=== PATIENT | male | born 1950 | race Caucasian/White ===

== ENCOUNTER → 2019-10-27 | Outpatient (CLI) | payer MEDICARE ==
--- NOTE | 2019-10-27 12:42 | US ---
EXAMINATION TYPE: US venous doppler duplex LE DATE OF EXAM: 10/27/2019 12:29 PM COMPARISON: NONE CLINICAL HISTORY: R60.0 Edema. SIDE PERFORMED: TECHNIQUE: The lower extremity deep venous system is examined utilizing real time linear array sonog bryson with graded compression, doppler sonography and color-flow sonography. VESSELS IMAGED: External Iliac Vein (EIV) Common Femoral Vein Deep Femoral Vein Greater Saphenous Vein * Femoral Vein Popliteal Vein Small Saphenous Vein * Proximal Calf Veins (* superficial vessels) Patient of large body habitus, technically difficult study. Right Leg: appears negative for DVT Left Leg: appears negative for DVT Grayscale, color doppler, spectral doppler imaging performed of the deep veins of the bilateral lower extremities. There is normal flow, compressibility, vascular waveforms. IMPRESSION: No ultrasound evidence for acute DVT in either lower extremity.
== END | disposition home or self-care (01) ==
LOC: RADUSWWP 11:36
PROVIDERS: ATTEND Nurse Practitioner Family
DX: R60.0 Localized edema (principal)
CPT/HCPCS: 93970

== ENCOUNTER → 2020-06-07 | Outpatient (CLI) | payer MEDICARE ==
--- NOTE | 2020-06-08 16:46 | ECHOF ---
Referral Reason:I50.9 Heart failure MEASUREMENTS -------- HEIGHT: 190.5 cm WEIGHT: 140.6 kg BP: IVSd: 1.8 cm (0.6 - 1.1) LVIDd: 5.1 cm (3.9 - 5.3) LVPWd: 2.2 cm (0.6 - 1.1) IVSs: 2.4 cm LVIDs: 3.9 cm LVPWs: 2.4 cm LAESV Index (A-L): 19.08 ml/m Ao Diam: 4.3 cm (2.0 - 3.7) AV Cusp: 2.0 cm (1.5 - 2.6) MV E Nikita: 0.67 m/s MV DecT: 380 ms MV A Nikita: 0.87 m/s MV E/A Ratio: 0.77 AR PHT: 479 ms FINDINGS -------- This was a technically difficult study with suboptimal views. The left ventricular size is normal. There is severe concentric left ventricular hypertrophy. Ove rall left ventricular systolic function is mild-moderately impaired with, an EF between 40 - 45 %. Septal wall motion is delayed, and consistent with conduction delay/bundle branch block. The RV was not well visualized. Normal LA size by volume 22+/-6 ml/m2. The right atrium was not well visualized. 5.0mg of Lumason was utilized for enhancement of images Interatrial and interventricular septum intact. The aortic valve was not well visualized. Trace amount of aortic regurgitation. There is no evid ence of aortic stenosis. The mitral valve was not well visualized. No mitral regurgitation. The tricuspid valve was not well visualized. Unable to estimate RVSP due to inadequate TR jet spect ral doppler profile. The pulmonic valve was not well visualized. The aortic root is dilated measuring 4.3cm. IVC Not well visulized. There is no pericardial effusion. CONCLUSIONS -------- 1. The left ventricular size is normal. 2. There is severe concentric left ventricular hypertrophy. 3. Overall left ventricular systolic function is mild-moderately impaired with, an EF between 40 - 45 %. 4. Septal wall motion is delayed, and consistent with conduction delay/bundle branch block. 5. Trace amount of aortic regurgitation. 6. The aortic root is dilated measuring 4.3cm. CHAIR MECHANIC: Lucy Garcia RDCS
== END | disposition home or self-care (01) ==
LOC: RADECHMAIN 11:49
PROVIDERS: ATTEND Family Medicine
DX: I50.9 Heart failure, unspecified (principal); I35.1 Nonrheumatic aortic (valve) insufficiency; I51.7 Cardiomegaly
CPT/HCPCS: C8929; Q9950; 93306

== ENCOUNTER → 2022-05-15 | Outpatient (CLI) | payer BC ==
--- NOTE | 2022-05-15 14:21 | CT ---
EXAMINATION TYPE: CT angio chest DATE OF EXAM: 05/15/2022 COMPARISON: None HISTORY: thoracic aneurysm CT DLP: 1802.9 mGycm CONTRAST: CTA thoracic aorta with 3-D reconstruction is performed and with IV Contrast, patient injected with 1 70 mL of Isovue 370. Contrast CTA of the thoracic aorta was performed from the lung apex through the upper abdomen. 3D re construction imaging obtained at a separate workstation. CT Chest: THORACIC AORTA: The aortic root measures 4 cm AP dimension. Ascending thoracic aorta measures 4.1 cm AP dimension. The aortic arch and ascending thoracic aorta are of normal caliber. Mild atheromatous c hanges seen. There is no evidence for dissection or periaortic collection. LUNGS: The lungs are clear and free of infiltrate or atelectasis. Parenchymal scarring in the region of the lingula. No pulmonary nodule or mass is detected. No pleural effusion or CT evidence of inte rstitial lung disease. MEDIASTINUM: No evidence for mediastinal hematoma. The heart is not enlarged. No evidence for med iastinal mass or adenopathy. HILAR STRUCTURES: No evidence for mass. No hilar adenopathy is appreciated. OTHER: No significant abnormality. IMPRESSION- Mild ascending thoracic aortic aneurysm.
== END | disposition home or self-care (01) ==
LOC: RADCTMAIN 12:38
PROVIDERS: ATTEND Internal Medicine Cardiovascular Disease
DX: I71.21 Aneurysm of the ascending aorta, without rupture (principal)
CPT/HCPCS: 82565; 84520; 71275; 36415; Q9967

== ENCOUNTER 2022-12-25 07:41 | Day surgery (SDC) | payer MEDICARE ==
[~2022-12-25 07:41] MED LIST: ALPRAZolam 0.25 MG TAB PO PRN; ALPRAZolam 0.5 MG TAB PO PRN; ASPIRIN 325 MG TAB PO STA; ATORVASTATIN 80 MG TAB PO STA; HEPARIN SODIUM,PORCINE (1 ML) 2,500 UNIT in SODIUM CHLORIDE 0.9% 250 ML IRRIGATION PRN; HEPARIN SODIUM,PORCINE 10,000 UNIT in SODIUM CHLORIDE 0.9% 1,000 ML IRRIGATION PRN; NITROGLYCERIN SL TABS 0.4 MG TAB SUBLINGUAL PRN
[2022-12-25] MEDS ORDERED: SODIUM CHLORIDE 0.9% 1,000 ML IV ONE (07:56)
[2022-12-25] MEDS ORDERED: METOPROLOL SUCCINATE (ER) 25 MG TAB.ER.24H PO STA (08:02)
[2022-12-25] MEDS ORDERED: fentaNYL (PF) 50 MCG/ML 2 ML AMP ONE (09:10)
[2022-12-25] MEDS ORDERED: fentaNYL (PF) 50 MCG/ML 2 ML AMP IVP ONE ×2 (09:20→09:41)
[2022-12-25] MEDS ORDERED: MIDAZOLAM 2 MG/2 ML VIAL IVP ONE (09:41)
[2022-12-25] MEDS ORDERED: LIDOCAINE 1% INJ 10MG/ML (20 ML MDV) SQ ONE (09:44)
[2022-12-25] MEDS ORDERED: VERAPAMIL SYRINGE (5 MG/10 ML) INTRAARTER ONE (09:45)
[2022-12-25] MEDS ORDERED: HEPARIN SODIUM 1,000 UN/ML (10ML VL) ONE (09:47)
[2022-12-25] MEDS ORDERED: HEPARIN SODIUM 1,000 UN/ML (10ML VL) IV ONE (09:48)
[2022-12-25] MEDS ORDERED: IOPAMIDOL-370 100ML BTL INJ ONE (10:05)
[2022-12-25] MEDS ORDERED: SODIUM CHLORIDE 0.9% 1,000 ML IV SCH (10:30)
[2022-12-25] MEDS ORDERED: RX INFO: IV CONTRAST WAS GIVEN 1 EACH MISC MISCELLANE PRN (10:34)
--- NOTE | 2022-12-25 10:52 | CC ---
CARDIAC CATHETERIZATION REPORT INDICATION: Unstable angina. HISTORY OF PRESENT ILLNESS: This is a 72-year-old gentleman with history of shortness of breath and who presented to me with progressively worsening shortness of breath with activity. He initially had a dobutamine stress echo that did not reveal any ischemia and was advised to undergo cardiac catheterization for definitive diagnosis, but he canceled his cardiac cath and came back to see me almost 6 months later stating that his shortness of breath is getting worse and he is concerned. I felt that his shortness of breath may be an anginal equivalent. Hence, I advised him to undergo cardiac catheterization for further evaluation. The patient had been explained of risks, benefits, and alternatives, understood and accepted. PROCEDURE NOTE: After obtaining informed consent, left heart catheterization and coronary angiogram were performed via the right radial artery using standard Laura catheters. The patient tolerated the procedure well without any obvious immediate complications. A TR band will be used for hemostasis. Received moderate conscious sedation. Total sedation time was 35 minutes. I obtained right radial artery access using Seldinger technique, 6-[place] sheath was placed. Catheters and wires were floated into the ascending aorta under fluoroscopic guidance. The patient received verapamil and heparin per protocol. FINDINGS: 1. HEMODYNAMICS: Left ventricular end-diastolic pressure is 18 mm. There is no significant gradient across the aortic valve. 2. LEFT VENTRICULOGRAM: Left ventriculogram is not performed. 3. ANGIOGRAPHIC DATA: a.Right coronary artery is a large dominant vessel that shows a focal 70% stenosis in the mid RCA. Left main coronary artery appears calcified, but is free of significant stenosis. Divides into left anterior descending coronary artery and circumflex coronary artery. Circumflex coronary artery gives off a large-caliber OM branch that shows a focal 90% stenosis. LAD shows a 90% stenosis in the proximal portion as it gives rise to a large diagonal branch. CONCLUSIONS: Three-vessel coronary artery disease as described above. PLAN: I am going to consult a Cardiothoracic Surgeon to give an opinion regarding surgical revascularization. I also had Dr. Ellsworth, the on-call coal screener review the angiographic data, who felt that the patient has bifurcation lesions and should undergo percutaneous revascularization only in the event that the surgeon thinks he is high risk. MMODL / IJN: [id number] /
--- NOTE | 2022-12-25 10:55 | LTR ---
Dear Ángela: I performed cardiac catheterization on Freddie Shirley. A detailed catheterization note is enclosed for your records. In brief, the cardiac catheterization revealed severe three-vessel coronary artery disease and I am going to consult a Cardiothoracic Surgeon to advise on surgical revascularization of the same. Thank you for giving me the privilege of participating in the care of this pleasant gentleman. Sincerely, JULIAN / DWAYNE: [id number] /
--- NOTE | 2022-12-25 13:35 | US ---
EXAMINATION TYPE: US vein mapping BILAT DATE OF EXAM: 12/25/2022 1:16 PM COMPARISON: NONE CLINICAL INDICATION: Male, 72 years old with history of PreOp Cardiac Surgery; open heart SIDE PERFORMED: Bilateral TECHNIQUE: Lower extremity saphenous vein is examined and measured utilizing real time linear array sonography. Patient History: Smoker: No Heart Disease: No Previous DVT: No Vascular Surgery: No Discoloration: yes Hypertension: Yes Diabetes: No Paralysis: No Varicosities: No Edema: Yes DUPLEX FINDINGS: Greater Saphenous: Color flow seen Lesser Saphenous: Color flow seen Measurements in mm: Right Greater Saphenous: Groin: 7.2 x 8.9 mm High Thigh: 4.8 x 4.9 mm Mid Thigh: 5.2 x 4.4 mm Above Knee: 5.1 x 3.6 mm Knee: 5.5 x 3.9 mm Below Knee: 4.6 x 3.9 mm Mid Calf: 4.8 x 3.9 mm At Ankle: 2.9 x 1.7 mm Left Greater Saphenous: Groin: 11.4 x 7.7 mm High Thigh: 5.8 x 2.9 mm Mid Thigh: 3.8 x 2.9 mm Above Knee: 4.1 x 3.8 mm Knee: 4.3 x 2.6 mm Below Knee: 4.5 x 3.3 mm Mid Calf: 3.1 x 2.6 mm At Ankle: 3.0 x 2.2 mm IMPRESSION: 1. Bilateral GSV measurements listed above. 2. Performing surgeon to determine viability as conduit.
--- NOTE | 2022-12-25 13:35 | US ---
EXAMINATION TYPE: US carotid duplex BILAT DATE OF EXAM: 12/25/2022 COMPARISON: NONE CLINICAL INDICATION: Male, 72 years old with history of CAD, eval carotids; open heart limited due to body habitus and interference from floor. TECHNIQUE: Carotid duplex ultrasound examination. Indirect Doppler criteria was utilized. FINDINGS: EXAM MEASUREMENTS: RIGHT: Peak Systolic Velocity (PSV) cm/sec ----- Right CCA: 63.8 ----- Right ICA: 139.7 ----- Right ECA: 167.3 ICA/CCA ratio: 2.2 RIGHT: End Diastole cm/sec ----- Right CCA: 10.3 ----- Right ICA: 27.4 ----- Right ECA: 0 LEFT: Peak Systolic Velocity (PSV) cm/sec ----- Left CCA: 58.9 ----- Left ICA: 100.3 ----- Left ECA: 64.8 ICA/CCA ratio: 1.7 LEFT: End Diastole cm/sec ----- Left CCA: 11.6 ----- Left ICA: 21.5 ----- Left ECA: 0 VERTEBRALS (direction of flow): Right Vertebral: Antegrade Left Vertebral: Antegrade Rhythm: Normal WATER RESOURCE PROJECT MANAGER NOTES: IMPRESSION: 1. 50-69% stenosis of the right carotid bifurcation by peak systolic velocity. 2. Less than 50% stenosis of the left carotid bifurcation. Criteria for Assigning % of Stenosis / Diameter reduction (Estimation based on the indirect measurements of the internal carotid artery velocities (ICA PSV). 1. Normal (no stenosis)=ICA PSV < 125 cm/s: ratio < 2.0: ICA EDV<40 cm/s. 2. Less than 50% stenosis=ICA PSV < 125 cm/s: ratio < 2.0: ICA EDV<40 cm/s. 3. 50 to 69% stenosis=ICA PSV of 125 to 230 cm/s: ration 2.0 ? 4.0: ICA EDV 40-100 cm/s. 4. Greater than 70% stenosis to near occlusion= ICA PSV > 230 cm/s: ratio > 4.0: ICA EDV > 100 cm/s. 5. Near occlusion= ICA PSV velocities may be low or undetectable: variable ratio and ICA EDV. 6. Total occlusion=unable to detect flow.
--- NOTE | 2022-12-25 13:36 | US ---
EXAMINATION TYPE: Pre-Operative Non-Invasive Evaluation of the hand for Potential Radial Artery La Nenadc busby, Measurements only DATE OF EXAM: 12/25/2022 1:17 PM CLINICAL INDICATION: Male, 72 years old with history of Pre-Op Cardiac Surgery; open heart SIDE PERFORMED: Left TECHNIQUE: Radial artery is measured utilizing real time linear array sonography. Dominant hand: Right Duplex Findings: Radial Artery: Color flow seen Measurements in mm, transverse view: Left Radial: Proximal: 6.0 x 5.4 mm Mid: 2.8 x 2.9 mm Distal: 3.0 x 2.2 mm IMPRESSION: 1. Left radial measurements listed above.
[2022-12-25] MEDS: SACUBITRIL/VALSARTAN 97 MG-103 MG TABLET PO SCH ×2 (14:05→21:04)
[2022-12-25] MEDS ORDERED: ASPIRIN 81 MG PO PRN (14:19)
[2022-12-25] MEDS: SODIUM CHLORIDE 0.9% 1,000 ML in EMPTY BAG 1 BAG IV SCH ×2 (14:33→17:35)
[2022-12-25 15:22] LABS: Basophils # (A) 0.1 k/uL (0-0.2); Basophils % (A) 1 %; Eosinophils # (A) 0.3 k/uL (0-0.7); Eosinophils % (A) 3 %; HGB 16.1 gm/dL (13.0-17.5); Lymphocytes % (A) 24 %; MCH 30.9 pg (25.0-35.0); MCHC 32.1 g/dL (31.0-37.0); MCV 96.3 fL (80.0-100.0); Mean Platelet Volume 10.9; Monocytes # (A) 0.7 k/uL (0-1.0); Monocytes % (A) 8 %; Neutrophils # (A) 4.9 k/uL (1.3-7.7); Neutrophils % (A) 61 %; Platelet Count 137 k/uL (150-450); RBC 5.19 m/uL (4.30-5.90); RDW 12.8 % (11.5-15.5)
[2022-12-25 15:38] LABS: INR 1.1 (<1.2); Prothrombin Time 11.8 sec (10.0-12.5)
[2022-12-25 15:39] LABS: Partial Thromboplastin Time 26.7 sec (22.0-30.0)
[2022-12-25 15:40] LABS: ALT 19 U/L (4-49); African American GFR (CKD) >90 (>60 ml/min/1.73 sqM); Albumin 3.7 g/dL (3.5-5.0); Anion Gap 9 mmol/L; Blood Urea Nitrogen 18 mg/dL (9-20); Calcium 9.4 mg/dL (8.4-10.2); Carbon Dioxide 24 mmol/L (22-30); Chloride 106 mmol/L (98-107); Glucose 84 mg/dL (74-99); Non-African American GFR(CKD) >90 (>60 ml/min/1.73 sqM); Sodium 139 mmol/L (137-145); Total Bilirubin 0.8 mg/dL (0.2-1.3); Total Protein 6.7 g/dL (6.3-8.2)
[2022-12-25 15:45] LABS: AST 30 U/L (17-59); Potassium 4.8 mmol/L (3.5-5.1)
[2022-12-25 15:46] LABS: Alkaline Phosphatase 89 U/L (38-126); Magnesium 1.8 mg/dL (1.6-2.3)
[2022-12-25 16:14] LABS: Appearance,Urine Clear (Clear); Bilirubin,Urine Negative (Negative); Blood,Urine Negative (Negative); Color,Urine Light Yellow; Glucose,Urine (UA) Negative (Negative); Ketones,Urine Negative (Negative); Leukocyte Esterase,Urine Negative (Negative); Nitrite,Urine Negative (Negative); PH, Urine 6.5 (5.0-8.0); Protein,Urine Trace (Negative); Specific Gravity,Urine 1.037 (1.001-1.035); Urobilinogen,Urine <2.0 mg/dL (<2.0)
--- NOTE | 2022-12-25 16:36 | US ---
EXAMINATION TYPE: US arterial LE multi level DATE OF EXAM: 12/25/2022 4:21 PM CLINICAL INDICATION: Male, 72 years old with history of Ankle Brachial Index (WILDER) ; Right brachial p ressure deferred due to heart cath. History of: Smoker: No Hypertension: Yes Diabetic: No Hyperlipidemia: No TIA/CVA: No Previous Vascular Surgery: No CAD: No AR: No Vascular Ulcers: No Claudication: No Gangrene: No Doppler Waveforms: Right: Biphasic Left: Biphasic Ankle-Brachial Indices: Right: 1.02 Left: 1.25 Toe Brachial Indices: Right: 0.63 Left: 0.73 IMPRESSION: Ankle-brachial indices within normal limits bilaterally.
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
--- NOTE | 2022-12-25 19:57 | XR ---
EXAMINATION TYPE: XR chest 2V DATE OF EXAM: 12/25/2022 7:52 PM CLINICAL INDICATION:Male, 72 years old with history of PreOp Cardiac Surgery; [facility] COMPARISON: None TECHNIQUE: XR chest 2V Frontal and lateral views of the chest. FINDINGS: Lungs/Pleura: There is flattening of the diaphragm with increased lucency of the lungs. No evidence o f pneumothorax, pleural effusion or focal consolidation. Pulmonary vascularity: Pulmonary vascular congestion. Heart/mediastinum: Cardiomediastinal silhouette is enlarged. Musculoskeletal: No acute osseous pathology. IMPRESSION: 1. No acute cardiopulmonary disease process. 2. COPD changes.
[2022-12-26] MEDS: SODIUM CHLORIDE 0.9% 1,000 ML in EMPTY BAG 1 BAG IV SCH (02:31)
[2022-12-26 03:10] LABS: Hepatitis A Antibody IgM Nonreactive; Hepatitis B Core IgM Nonreactive; Hepatitis B Surface Antigen Nonreactive; Hepatitis C IgG Antibody Nonreactive
[2022-12-26] MEDS: SACUBITRIL/VALSARTAN 97 MG-103 MG TABLET PO SCH (08:18)
[2022-12-26 08:36] VITALS: TEMP 97.2
[2022-12-26] MEDS ORDERED: BUMETANIDE 1 MG TAB PO SCH (09:00)
[2022-12-26] MEDS ORDERED: METOPROLOL SUCCINATE (ER) 25 MG TAB.ER.24H PO SCH (09:00)
[2022-12-26] MEDS ORDERED: POTASSIUM CHLORIDE ER 10 MEQ TAB.ER.PRT PO SCH (09:00)
[2022-12-26 09:03] LABS: African American GFR (CKD) >90 (>60 ml/min/1.73 sqM); Anion Gap 7 mmol/L; Blood Urea Nitrogen 17 mg/dL (9-20); Calcium 9.4 mg/dL (8.4-10.2); Carbon Dioxide 26 mmol/L (22-30); Chloride 104 mmol/L (98-107); Glucose 167 mg/dL (74-99); Non-African American GFR(CKD) 88 (>60 ml/min/1.73 sqM); Potassium 4.3 mmol/L (3.5-5.1); Sodium 137 mmol/L (137-145)
[2022-12-26 11:30] VITALS: BP 173/87; PULSE 50; RESP 17
[2022-12-26] MEDS ORDERED: ISOSORBIDE MONONITRATE ER 30 MG TAB.ER.24H PO SCH (13:15)
--- NOTE | 2022-12-26 13:21 | P.PN ---
Subjective Progress Note Date: 12/26/22 History of present illness: This is a 72 year old male patient status post debridement stress echocardiogram and CAT scan of the chest with continued concerns for shortness of breath primarily with activity. Patient was brought in the hospital status post cardiac catheterization which found three-vessel coronary artery disease. Patient was placed on the cardio stepdown unit and consult for cardiothoracic surgeon was done for CABG. Plan is for patient to follow-up in the office as an outpatient and schedule CABG from there. Physical Examination Gen: This is a 72-year-old male. He is resting in bed and appears to be comfortable. No acute distress noted HEENT: Head is atraumatic, normocephalic. Pupils equal, round. Sclerae is anicteric. LUNGS: Clear to auscultation. No wheezes or rhonchi. No intercostal retractions. HEART: Regular rate and rhythm. No murmur. ABDOMEN: Soft. Bowel sounds are present. No masses. No tenderness. EXTREMITIES: No pedal edema. No calf tenderness. NEUROLOGICAL: Patient is awake, alert and oriented x3. Assessment: Triple-vessel coronary artery disease Chronic diastolic heart failure Hypertension Obstructive sleep apnea Morbid obesity Osteoarthritis Remote history of tobacco use and dependence Plan: Discharge patient home today in stable condition with the same home cardiac medications and add Imdur, Lipitor and nitro stat. Nurse practitioner note has been reviewed, I agree with documented findings and plan of care. Patient was seen and examined. Objective - Vital Signs Vital signs: Vital Signs Temp 97.2 F L 12/26/22 08:15 Pulse 50 L 12/26/22 11:24 Resp 17 12/26/22 11:24 BP 173/87 12/26/22 11:24 Pulse Ox 96 12/26/22 11:24 FiO2 Intake & Output 12/25/22 12/26/22 12/26/22 18:59 06:59 18:59 Intake Total 780 180 Output Total 600 Balance 180 180 Weight 148.6 kg Intake: IV 300 Oral 480 180 Output: Urine 600 Other: # Voids 1 1 - Labs CBC & Chem 7: 12/25/22 14:43 12/26/22 08:07 Labs: Abnormal Lab Results - Last 24 Hours (Table) 12/25/22 12/25/22 12/25/22 Range/Units 14:43 14:43 15:50 Plt Count 137 L (150-450) k/uL Glucose (74-99) mg/dL Hemoglobin A1c 6.2 H (<=6.0) % Ur Specific Anna 1.037 H (1.001-1.035) Urine Protein Trace H (Negative) 12/26/22 Range/Units 08:07 Plt Count (150-450) k/uL Glucose 167 H (74-99) mg/dL Hemoglobin A1c (<=6.0) % Ur Specific Anna (1.001-1.035) Urine Protein (Negative)
--- NOTE | 2022-12-26 13:22 | CA ---
Transthoracic Echo Report Name: Freddie Shirley Age: 72 Gender: M : 1950 Exam Date: 12/26/2022 10:12 Exam Location: [facility] Ht (in): 75 Wt (lb): 327 Ordering Physician: Briana Mistry Attending/Referring Phys: [id number], Fidelia Master [place] Thierno Ndiaye Procedure CPT: Indications: LVF Cardiac Hx: Technical Quality: Technically very difficult study Contrast 1: Definity Total Dose (mL): 5ml Contrast 2: Total Dose (mL): MEASUREMENTS (Male / Female) Normal Values 2D ECHO LV Diastolic Diameter PLAX 5.9 cm 4.2 - 5.9 / 3.9 - 5.3 cm LV Systolic Diameter PLAX 3.8 cm IVS Diastolic Thickness 1.2 cm 0.6 - 1.0 / 0.6 - 0.9 cm LVPW Diastolic Thickness 1.2 cm 0.6 - 1.0 / 0.6 - 0.9 cm LV Relative Wall Thickness 0.4 RV Internal Dim ED PLAX 2.3 cm Aortic Root Diameter 4.5 cm LV Diastolic Volume MOD 4C 124.0 cm??? LV Systolic Volume MOD 4C 71.1 cm??? LV Ejection Fraction MOD 4C 42.7 % LV Cardiac Index MOD 4C 1387.5 cm???/min???m??? LV Diastolic Length 4C 8.3 cm LV Systolic Length 4C 7.6 cm LA Volume 55.0 cm??? 18 - 58 / 22 - 52 cm??? LA Volume Index 19.2 cm???/m??? 16 - 28 cm???/m??? M-MODE Aortic Root Diameter MM 4.8 cm LA Systolic Diameter MM 2.0 cm LA Ao Ratio MM 0.4 AV Cusp Separation MM 2.0 cm DOPPLER AV Peak Velocity 123.9 cm/s AV Peak Gradient 6.1 mmHg LVOT Peak Velocity 85.6 cm/s LVOT Peak Gradient 2.9 mmHg LVOT Velocity Time Integral 20.5 cm MV Peak Velocity 95.9 cm/s MV Peak Gradient 3.7 mmHg MV Mean Velocity 47.7 cm/s MV Mean Gradient 1.2 mmHg MV Velocity Time Integral 31.0 cm Mitral E Point Velocity 64.1 cm/s Mitral A Point Velocity 80.0 cm/s Mitral E to A Ratio 0.8 MV Deceleration Time 377.6 ms MV E' Velocity 5.4 cm/s Mitral E to MV E' Ratio 11.8 TR Peak Velocity 118.9 cm/s TR Peak Gradient 5.7 mmHg Right Ventricular Systolic Press 10.7 mmHg PV Peak Velocity 123.2 cm/s PV Peak Gradient 6.1 mmHg FINDINGS Left Ventricle Mild left ventricular dilatation. Mild concentric LVH. Left ventricular ejection fraction is estimated at 55-60 %. Right Ventricle Normal right ventricular size. Right Atrium Normal right atrial size. Left Atrium Normal left atrial size. LA volume index= 20ml/m2 Mitral Valve Structurally normal mitral valve. No mitral stenosis. No mitral regurgitation. Aortic Valve Aortic valve not well visualized. No aortic valve stenosis or regurgitation. Tricuspid Valve Tricuspid valve not well visualized. Trace TR. Pulmonic Valve Pulmonic valve not well visualized. No pulmonic regurgitation. Pericardium Not well visualized. Aorta AO root keerthi= 4.5cm. CONCLUSIONS Technically very difficult and limited study. Definity ECHO contrast used for improved visualization of the endocardial borders (inadequate visualization of two or more contiguous segments). Normal left ventricle size and systolic function Very limited Doppler study with no significant abnormalities Previewed by: Dr. Ros Gonzalez MD (Electronically Signed) Final Date: 26 December 2022 13:21
[2022-12-26 17:02] LABS: Chol/HDL Ratio 6.31 Ratio; LDL Cholesterol,Calculated 154.7 mg/dL (0.0-131.0)
== END 2022-12-26 14:25 | disposition home or self-care (01) ==
LOC: CATHCVL 07:41 → 3SCARD 10:22 → CATHCVL 12-26 14:25
PROVIDERS: ATTEND Internal Medicine Cardiovascular Disease
DX: I20.0 Unstable angina (principal); I11.0 Hypertensive heart disease with heart failure; I50.32 Chronic diastolic (congestive) heart failure; E66.9 Obesity, unspecified; Z68.41 Body mass index [BMI] 40.0-44.9, adult; G47.33 Obstructive sleep apnea (adult) (pediatric); M19.90 Unspecified osteoarthritis, unspecified site; Z87.891 Personal history of nicotine dependence; Z79.899 Other long term (current) drug therapy; Z98.890 Other specified postprocedural states
CPT/HCPCS: 94150; 93458; 80061; 80053; 80048; 80074; 84443; 83735; 85025; 85610; 85730; 81003; 87070; 83036; 71046; 93931; 93970; 93922; 93880; C8929; C1769; C1894; J2250; J2001; J3010; Q9957; J1644; Q9967; 93306

== ENCOUNTER 2023-01-21 10:09 | Observation (INO) | payer MEDICARE ==
[~2023-01-21 10:09] MED LIST changes: -ATORVASTATIN 80 MG TAB PO STA; -HEPARIN SODIUM,PORCINE (1 ML) 2,500 UNIT in SODIUM CHLORIDE 0.9% 250 ML IRRIGATION PRN; -HEPARIN SODIUM,PORCINE 10,000 UNIT in SODIUM CHLORIDE 0.9% 1,000 ML IRRIGATION PRN
[2023-01-21] MEDS: SODIUM CHLORIDE 0.9% 1,000 ML in EMPTY BAG 1 BAG IV SCH ×3 (10:55→20:28)
[2023-01-21 11:17] LABS: African American GFR (CKD) >90 (>60 ml/min/1.73 sqM); Anion Gap 10 mmol/L; Blood Urea Nitrogen 22 mg/dL (9-20); Calcium 9.6 mg/dL (8.4-10.2); Carbon Dioxide 28 mmol/L (22-30); Chloride 100 mmol/L (98-107); Glucose 93 mg/dL (74-99); Non-African American GFR(CKD) 87 (>60 ml/min/1.73 sqM); Sodium 138 mmol/L (137-145)
[2023-01-21 11:31] LABS: Basophils # (A) 0.1 k/uL (0-0.2); Basophils % (A) 1 %; Eosinophils # (A) 0.3 k/uL (0-0.7); Eosinophils % (A) 3 %; HCT 53.6 % (39.0-53.0); HGB 17.3 gm/dL (13.0-17.5); Lymphocytes # (A) 2.3 k/uL (1.0-4.8); Lymphocytes % (A) 24 %; MCH 31.2 pg (25.0-35.0); MCHC 32.3 g/dL (31.0-37.0); MCV 96.5 fL (80.0-100.0); Mean Platelet Volume 11.2; Monocytes # (A) 0.7 k/uL (0-1.0); Monocytes % (A) 7 %; Neutrophils # (A) 6.2 k/uL (1.3-7.7); Neutrophils % (A) 63 %; Platelet Count 157 k/uL (150-450); RBC 5.56 m/uL (4.30-5.90); RDW 12.8 % (11.5-15.5); WBC 9.9 k/uL (3.8-10.6)
[2023-01-21 11:33] LABS: Potassium 5.4 mmol/L (3.5-5.1)
[2023-01-21] MEDS ORDERED: HEPARIN SODIUM 1,000 UN/ML (10ML VL) ONE (12:09)
[2023-01-21] MEDS ORDERED: LIDOCAINE 1% INJ 10MG/ML (20 ML MDV) ONE ×2 (12:09→14:03)
[2023-01-21] MEDS ORDERED: MIDAZOLAM 2 MG/2 ML VIAL IVP ONE ×2 (12:12→13:58)
[2023-01-21] MEDS ORDERED: HYDROmorphone 1 MG/ML 1 ML SYRINGE IVP ONE ×2 (12:13→13:19)
[2023-01-21] MEDS ORDERED: LIDOCAINE 1% INJ 10MG/ML (5 ML VIAL-PF) SQ ONE (12:20)
[2023-01-21] MEDS: HEPARIN SODIUM 1,000 UN/ML (10ML VL) IV ONE ×2 (12:23→14:01)
[2023-01-21] MEDS ORDERED: VERAPAMIL SYRINGE (5 MG/10 ML) INTRAARTER ONE (12:23)
[2023-01-21] MEDS ORDERED: HEPARIN SODIUM 1,000 UN/ML (10ML VL) IV ONE (12:38)
[2023-01-21] MEDS ORDERED: fentaNYL (PF) 50 MCG/ML 2 ML AMP ONE (12:40)
[2023-01-21] MEDS: fentaNYL (PF) 50 MCG/ML 2 ML AMP IVP ONE ×2 (12:41→13:58)
[2023-01-21] MEDS ORDERED: TICAGRELOR 90 MG TAB PO ONE (12:47)
[2023-01-21] MEDS ORDERED: TICAGRELOR 90 MG TAB ONE (12:48)
[2023-01-21] MEDS ORDERED: HEPARIN SODIUM 1,000 UN/ML (10ML VL) IVP ONE (13:36)
[2023-01-21] MEDS ORDERED: NITROGLYCERIN 1000MCG/10ML SYRINGE INTRACORON ONE (14:25)
[2023-01-21] MEDS ORDERED: IOPAMIDOL-370 125ML BTL INJ ONE (14:28)
[2023-01-21] MEDS ORDERED: NITROGLYCERIN SL TABS 0.4 MG TAB SUBLINGUAL PRN ×2 (14:37→14:38)
[2023-01-21] MEDS ORDERED: MAG HYDROX/AL HYDROX/SIMETH 30 ML CUP PO PRN (14:38)
[2023-01-21] MEDS ORDERED: ATROPINE SULFATE 0.1 MG/ML 10ML SYRINGE IV PRN (14:38)
[2023-01-21] MEDS ORDERED: ZOLPIDEM 5 MG TAB PO PRN (14:38)
[2023-01-21] MEDS ORDERED: RX INFO: IV CONTRAST WAS GIVEN 1 EACH MISC MISCELLANE PRN (14:38)
[2023-01-21] MEDS ORDERED: SODIUM CHLORIDE 0.9% 1,000 ML in EMPTY BAG 1 BAG IV SCH (14:45)
--- NOTE | 2023-01-21 14:45 | P.PCN ---
Date of Procedure: 01/21/23 Operative Findings: PERCUTANEOUS CORONARY INTERVENTION Performing physician Avelino Ellsworth M.D. Procedure Performed: 1. Successful stenting of the proximal LCx using 4.0 x 8 mm Xience drug-eluting stent with an excellent angiographic results. 2. Successful stending of the proximal LAD using 4.0 x 28 mm Xience drug-eluting stent with an excellent angiographic result. 3. Adjunctive use of intravascular imaging 4. Ultrasound guided access of the right radial artery 5. Selective right common femoral artery angiogram Indication: This is a pleasant 72-year-old gentleman who was diagnosed recently with severe symptomatic triple-vessel coronary artery disease and he was seen by the cardiac surgical team and he chose to undergo PCI and not going through open heart surgery. He was found to have severe disease involving the LCx and LAD and intermediate disease involving the RCA Approach: Right radial artery and right common femoral artery Complications: None Level of Sedation: Moderate with a sedation length of 2 one half hours Procedure Discussion: After obtaining an informed consent the patient was brought to the cardiac labor crew supervisor. The right radial artery was cannulated using micropuncture technique under ultrasound guidance the micropuncture wire passed easily then place 6-Japanese 11 cm sheath at the right radial artery and subsequently I gave the patient 2 mg of verapamil intra-arterial and 5000 use of heparin intravenous with continuous ACT monitoring throughout the procedure. Subsequently I did engage the left main using a CLS 3 guiding catheter. I did wire the left circumflex using 2 wires. The first wire was placed in the AV left circumflex and the second wire was placed in the first obtuse marginal branch of the left circumflex coronary artery. Subsequently I did intravascular ultrasound of the left circumflex and that showed a diameter of 4 mm. Predilatation was performed using 3.5 x 12 mm balloon before I deployed a 4.0 x 8 mm stent where the stent was positioned under fluoroscopy guidance just before the takeoff of the large first OM branch. The stent was deployed under 12 torrey for 15 seconds with final angiogram showed good angiographic results was ELENA-3 flow. Subsequently I decided to intervene on the LAD which has critical lesion in the proximal to midportion. I did wire the LAD using a run-through wire and the wire was positioned in the apical segment of the left anterior descending artery. Attempting advancing 3.5 mm noncompliant balloon was unsuccessful because the balloon would not make a turn from the proximal segment of the LAD to the mid segment of the LAD. At that point I did wire the LAD using 2 wires with the run-through was a peyton wire and the whisper wire was a working wire. With that I was unable to advance the 3.5 x 12 mm balloon noncompliant balloon to the proximal left anterior descending artery but I was able to advance 2.5 mm balloon were I did balloon angioplasty of the LAD using the 2.5 mm balloon. I attempted advancing to 3.5 mm noncompliant balloon using guide liner and that was unsuccessful and the guide was not giving me any support. At that point I decided to go from the groin. The right common femoral artery was cannulated using micropuncture technique under ultrasound guidance then I placed a 7-Japanese 23 cm sheath at the right common femoral artery. Subsequently I did engage the left main again using this time EBU 3.75 guiding catheter. The LAD was wired again this time using 2 whisper wires. Both placed in the apical segment of the left anterior descending artery. Before I advanced the stent I did balloon rafa oplasty this time using 4 mm noncompliant balloon. Finally I was able to advance a 4.0 x 28 mm stent where the stent was positioned under fluoroscopy guidance and deployed after the peyton wire was pulled out. The procedure was completed was no complication. Final selective right common femoral artery angiogram was performed and showed good position of the sheath were I did Angio- Seal the right groin. Postprocedure Management: 1. Dual antiplatelet therapy using aspirin and Brilinta for at least 6 month 2. Aggressive cholesterol control 3. Risk factors modification
[2023-01-21] MEDS ORDERED: ONDANSETRON 4 MG/2 ML VIAL ONE (14:58)
[2023-01-21] MEDS: TICAGRELOR 90 MG TAB PO SCH (20:29)
[2023-01-22] MEDS: SODIUM CHLORIDE 0.9% 1,000 ML in EMPTY BAG 1 BAG IV SCH ×4 (03:21→19:53)
[2023-01-22 06:50] LABS: African American GFR (CKD) >90 (>60 ml/min/1.73 sqM); Non-African American GFR(CKD) >90 (>60 ml/min/1.73 sqM)
[2023-01-22 08:29] LABS: Magnesium 1.8 mg/dL (1.6-2.3); Potassium 4.5 mmol/L (3.5-5.1)
[2023-01-22] MEDS ORDERED: [UNRECOGNIZED DRUG - OTHER] PO SCH (09:00)
[2023-01-22] MEDS ORDERED: BUMETANIDE 1 MG TAB PO SCH (09:00)
[2023-01-22] MEDS: ISOSORBIDE MONONITRATE ER 30 MG TAB.ER.24H PO SCH (09:32)
[2023-01-22] MEDS: METOPROLOL SUCCINATE (ER) 25 MG TAB.ER.24H PO SCH (09:32)
[2023-01-22] MEDS: FUROSEMIDE 10 MG/ML 4 ML VIAL IV SCH ×2 (09:32→19:46)
[2023-01-22] MEDS: ATORVASTATIN 40 MG TAB PO SCH (09:32)
[2023-01-22] MEDS: NAPROXEN 250 MG TAB PO SCH (09:32)
[2023-01-22] MEDS: TICAGRELOR 90 MG TAB PO SCH ×2 (09:32→19:46)
[2023-01-22] MEDS: ASPIRIN 81 MG PO SCH (09:32)
--- NOTE | 2023-01-22 10:10 | P.PN ---
Subjective HISTORY OF PRESENT ILLNESS: This is a 72-year-old male who underwent stenting of the proximal circumflex and proximal LAD yesterday with Dr. Ellsworth. Patient did have some respiratory distress post procedure and required supplemental oxygen. Patient examined this morning at the bedside. He continues to report some shortness of breath. He is currently on room air with oxygen saturations greater than 92%. He denies any chest pain or pressure. Patient's right groin soft with no hematoma noted. Blood pressure is stable. PHYSICAL EXAM: VITAL SIGNS: Reviewed. GENERAL: Well-developed in no acute distress. NECK: Supple. No JVD or thyromegaly LUNGS: Respirations even and unlabored. Lungs diminished with a few crackles at the bases HEART: Regular rate and rhythm. S1 and S2 heard. EXTREMITIES: Normal range of motion. No clubbing or cyanosis. Peripheral pulses intact. 2+ bilateral lower extremity edema ASSESSMENT: Coronary artery disease, status post stenting of the proximal left circumflex and LAD Acute hypoxic respiratory failure requiring supplemental oxygen, now on room air Acute on chronic heart failure with preserved EF, 55-60% Hypertension Hyperlipidemia Morbid obesity: BMI 40.5 PLAN: Continue dual antiplatelet therapy with aspirin and Brilinta Continue atorvastatin 40 mg daily Continue additional cardiac medications Begin Lasix 40 mg every 12 hours Daily weights, accurate I&O, and monitor kidney function Continue to diurese patient for an additional 24 hours Anticipate discharge home tomorrow if patient's breathing has improved Further recommendations pending patient's course Nurse practitioner note has been reviewed by physician. Signing provider agrees with the documented findings, assessment, and plan of care. Objective - Vital Signs Vital signs: Vital Signs Temp 98.0 F 01/22/23 07:00 Pulse 64 01/22/23 07:00 Resp 16 01/22/23 07:00 BP 161/76 01/22/23 07:00 Pulse Ox 95 01/22/23 07:00 FiO2 Intake & Output 01/21/23 01/22/23 01/22/23 18:59 06:59 18:59 Intake Total 800 Balance 800 Weight 146.8 kg Intake: IV 800 Other: # Voids 2 - Labs CBC & Chem 7: 01/21/23 10:14 01/22/23 05:41 Labs: Abnormal Lab Results - Last 24 Hours (Table) 01/21/23 01/21/23 Range/Units 10:14 10:14 Hct 53.6 H (39.0-53.0) % Potassium 5.4 H (3.5-5.1) mmol/L BUN 22 H (9-20) mg/dL
[2023-01-22 13:27] VITALS: BMI 40.4
[2023-01-23] MEDS: SODIUM CHLORIDE 0.9% 1,000 ML in EMPTY BAG 1 BAG IV SCH (04:07)
[2023-01-23 08:20] VITALS: BP 160/85; PULSE 57; RESP 18; TEMP 98.3
[2023-01-23] MEDS ORDERED: SACUBITRIL/VALSARTAN 97 MG-103 MG TABLET PO SCH (09:00)
[2023-01-23] MEDS ORDERED: BUMETANIDE 1 MG TAB PO SCH (09:00)
[2023-01-23] MEDS: ISOSORBIDE MONONITRATE ER 30 MG TAB.ER.24H PO SCH (09:05)
[2023-01-23] MEDS: ASPIRIN 81 MG PO SCH (09:05)
[2023-01-23] MEDS: TICAGRELOR 90 MG TAB PO SCH (09:05)
[2023-01-23] MEDS: NAPROXEN 250 MG TAB PO SCH (09:05)
[2023-01-23] MEDS: ATORVASTATIN 40 MG TAB PO SCH (09:06)
[2023-01-23] MEDS: METOPROLOL SUCCINATE (ER) 25 MG TAB.ER.24H PO SCH (09:06)
--- NOTE | 2023-01-23 11:33 | P.CRDCN ---
History of Present Illness History of present illness: This is a 72-year-old male who underwent stenting of the proximal circumflex and proximal LAD with Dr. Ellsworth. Patient did develop respiratory distress post procedure and was treated with IV diuresis for 24-hour secondary to acute on chronic heart failure. The patient is feeling better this morning without complaints of shortness of breath. He was deemed stable for discharge home today from a cardiac standpoint. Please see EMR for further hospital course details. Discharge diagnosis Coronary artery disease, status post stenting of the proximal left circumflex and LAD Acute hypoxic respiratory failure requiring supplemental oxygen, now on room air Acute on chronic heart failure with preserved EF, 55-60% Hypertension Hyperlipidemia Morbid obesity: BMI 40.5 Nurse practitioner note has been reviewed by physician. Signing provider agrees with the documented findings, assessment, and plan of care. Past Medical History Past Medical History: Heart Failure, Hyperlipidemia, Hypertension, Osteoarthritis (OA) Additional Past Medical History / Comment(s): See Dr Scott's H&P. SOB. Poor circulation in legs. bad back History of Any Multi-Drug Resistant Organisms: None Reported Past Surgical History: Heart Catheterization Additional Past Surgical History / Comment(s): 1 stent in each leg. Past Anesthesia/Blood Transfusion Reactions: No Reported Reaction, Motion Sickness Past Psychological History: No Psychological Hx Reported Smoking Status: Former smoker Past Alcohol Use History: None Reported Past Drug Use History: None Reported - Past Family History Brother(s) Family Medical History: Cancer Additional Family Medical History / Comment(s): Lung cancer. Sister(s) Family Medical History: Cancer Additional Family Medical History / Comment(s): Lung cancer. Mother Family Medical History: Myocardial Infarction ([place]) Father Family Medical History: Liver Disease Medications and Allergies Home Medications Medication Instructions Recorded Confirmed Type Bumetanide [BUMEX] 2 mg PO DAILY 06/27/22 01/21/23 History Metoprolol Succinate (ER) [Toprol 25 mg PO DAILY 06/27/22 01/21/23 History XL] Potassium Chloride ER [K-Dur 10] 10 meq PO DAILY 06/27/22 01/21/23 History Sacubitril/Valsartan [Entresto 97 1 each PO BID 06/27/22 01/21/23 History mg-103 mg Tablet] Joint Pain Supplement 1 cap PO DAILY 06/29/22 01/21/23 History Naproxen Sodium [Aleve] 220 mg PO DAILY 06/29/22 01/21/23 History Isosorbide Mononitrate ER [Imdur] 30 mg PO DAILY #30 tab 12/26/22 01/21/23 Rx Nitroglycerin Sl Tabs [Nitrostat] 0.4 mg SUBLINGUAL Q5M PRN #25 tab 12/26/22 01/21/23 Rx Atorvastatin [Lipitor] 40 mg PO DAILY 01/16/23 01/21/23 History Aspirin 81 mg PO DAILY PRN 01/21/23 01/21/23 History Ticagrelor [Brilinta] 90 mg PO BID #60 tab 01/22/23 Rx Allergies Allergy/AdvReac Type Severity Reaction Status Date / Time No Known Allergies Allergy Verified 01/21/23 10:42 Physical Exam Vitals: Vital Signs Temp Pulse Resp BP BP Pulse Ox 01/23/23 08:00 57 L 18 01/23/23 07:20 98.3 F 57 L 18 160/85 96 01/23/23 03:26 97.7 F 65 19 179/89 94 L 01/22/23 19:43 97.7 F 58 L 16 152/67 94 L 01/22/23 15:00 97.9 F 56 L 16 124/79 95 01/22/23 13:43 98.0 F 56 L 16 124/79 95 Intake and Output 01/22/23 01/23/23 01/23/23 22:59 06:59 14:59 Intake Total 118 95 Output Total 1300 700 Balance -1182 -700 95 Intake: Oral 118 95 Output: Urine 1300 700 Other: Weight 142.1 kg Results 01/21/23 10:14 01/22/23 05:41 Intake and Output 01/22/23 01/23/23 01/23/23 22:59 06:59 14:59 Intake Total 118 95 Output Total 1300 700 Balance -1182 -700 95 Intake: Oral 118 95 Output: Urine 1300 700 Other: Weight 142.1 kg 01/21/23 10:14 01/22/23 05:41
== END 2023-01-23 10:59 | disposition home or self-care (01) ==
LOC: CATHCVL 10:09 → 6NMEDSUR 14:30 → CATHCVL 01-22 12:16 → 6NMEDSUR 01-22 12:16
PROVIDERS: ADMIT Internal Medicine Interventional Cardiology; ATTEND Internal Medicine Interventional Cardiology
DX: I25.10 Atherosclerotic heart disease of native coronary artery without angina pectoris (principal); J96.01 Acute respiratory failure with hypoxia; I11.0 Hypertensive heart disease with heart failure; I50.33 Acute on chronic diastolic (congestive) heart failure; E78.5 Hyperlipidemia, unspecified; E66.01 Morbid (severe) obesity due to excess calories; Z68.41 Body mass index [BMI] 40.0-44.9, adult; Z87.891 Personal history of nicotine dependence; Z95.820 Peripheral vascular angioplasty status with implants and grafts; Z79.899 Other long term (current) drug therapy; Z79.82 Long term (current) use of aspirin; Z79.02 Long term (current) use of antithrombotics/antiplatelets
CPT/HCPCS: 96376; 96361 ×2; 96374; 92978; 76937; 83880; 80048; 82565; 83735; 84132; 85025; G0378 ×2; C9600; C1760; C1769 ×8; C1887 ×3; C1894 ×3; C1725 ×4; C1753; C1874 ×3; J2250; J1940; J2405; J2001; J3010; J1644; J1170; Q9967; J2305

== ENCOUNTER 2023-06-07 13:49 | Emergency (ER) | payer MEDICARE ==
[2023-06-07 14:20] VITALS: TEMP 97.1
--- NOTE | 2023-06-07 15:27 | XR ---
EXAMINATION TYPE: XR chest 2V DATE OF EXAM: 06/07/2023 3:20 PM CLINICAL INDICATION:Male, 73 years old with history of difficulty breathing; [facility] COMPARISON: None TECHNIQUE: XR chest 2V Frontal and lateral views of the chest. FINDINGS: Lungs/Pleura: There is flattening of the diaphragm with increased lucency of the lungs. No evidence o f pneumothorax, pleural effusion or focal consolidation. Pulmonary vascularity: Unremarkable. Heart/mediastinum: Cardiomediastinal silhouette is unremarkable. Musculoskeletal: No acute osseous pathology. IMPRESSION: 1. No acute cardiopulmonary disease process. 2. COPD changes.
[2023-06-07 15:35] LABS: Basophils # (A) 0.1 k/uL (0-0.2); Basophils % (A) 0 %; Eosinophils # (A) 0.2 k/uL (0-0.7); Eosinophils % (A) 1 %; HCT 27.6 % (39.0-53.0); Lymphocytes # (A) 2.5 k/uL (1.0-4.8); Lymphocytes % (A) 16 %; MCH 31.6 pg (25.0-35.0); MCHC 32.6 g/dL (31.0-37.0); Mean Platelet Volume 10.6; Monocytes # (A) 1.1 k/uL (0-1.0); Monocytes % (A) 7 %; Neutrophils # (A) 11.7 k/uL (1.3-7.7); Neutrophils % (A) 74 %; Platelet Count 193 k/uL (150-450); RBC 2.85 m/uL (4.30-5.90); RDW 13.3 % (11.5-15.5); WBC 15.9 k/uL (3.8-10.6)
[2023-06-07 15:49] LABS: INR 1.1 (<1.2); Partial Thromboplastin Time 24.7 sec (22.0-30.0); Prothrombin Time 11.8 sec (10.0-12.5)
[2023-06-07 15:52] LABS: ALT 15 U/L (4-49); AST 19 U/L (17-59); African American GFR (CKD) 54 (>60 ml/min/1.73 sqM); Albumin 3.2 g/dL (3.5-5.0); Alkaline Phosphatase 89 U/L (38-126); Anion Gap 7 mmol/L; Calcium 9.1 mg/dL (8.4-10.2); Carbon Dioxide 24 mmol/L (22-30); Chloride 108 mmol/L (98-107); Glucose 114 mg/dL (74-99); Magnesium 1.8 mg/dL (1.6-2.3); Non-African American GFR(CKD) 46 (>60 ml/min/1.73 sqM); Potassium 4.4 mmol/L (3.5-5.1); Sodium 139 mmol/L (137-145); Total Bilirubin 0.5 mg/dL (0.2-1.3); Total Protein 5.5 g/dL (6.3-8.2)
[2023-06-07 16:00] LABS: NT-Pro-B-Type Natriuretic Pept <20 pg/mL
[2023-06-07 16:11] LABS: Blood Urea Nitrogen 116 mg/dL (9-20)
--- NOTE | 2023-06-07 17:45 | ED ---
SOB HPI - General Stated Complaint: YE Time Seen by Provider: 06/07/23 13:55 Source: patient Mode of arrival: EMS Limitations: no limitations - History of Present Illness Initial Comments: 73-year-old male with past medical history of congestive heart failure hypertens ion, hyperlipidemia, coronary disease with coronary stent in January, claudication with lower extremity stenting who presents to the emergency department reporting shortness of breath. States that his breathing has been bad for the past couple of days but got worse this morning. He has had some l ower extremity edema. He does take Bumex and is supposed to take it twice daily however states he only takes it once because he does not want to have to urinate so frequently. Shortness of breath is worse with exertion. He denies any chest pain. He does have history of cardiac stents. He denies history of COPD or PE. He did receive 324 mg of aspirin and a DuoNeb breathing treatment by EMS. He states that these did not help any of his symptoms. Patient does Brilinta. Last echo on file was on December 26, 2022. EF was 50 to 55%. Upon further evaluation patient denies history of drinking, NSAID use. No history of liver failure or esophageal varices. Patient has never had a colonoscopy. Denies history of gastric ulcers. He denies any abdominal pain. He does admit that he has been having some diarrhea. It was pretty significant last night. Denies black or bloody stools - Related Data Home Medications Medication Instructions Recorded Confirmed Metoprolol Succinate (ER) [Toprol 25 mg PO DAILY 06/27/22 06/07/23 XL] Potassium Chloride ER [K-Dur 10] 10 meq PO DAILY 06/27/22 06/07/23 Sacubitril/Valsartan [Entresto 97 1 each PO BID 06/27/22 06/07/23 mg-103 mg Tablet] Aspirin 81 mg PO DAILY 01/21/23 06/07/23 Atorvastatin Calcium [Lipitor] 40 mg PO HS 06/07/23 06/07/23 Bumetanide 2 mg PO DAILY 06/07/23 06/07/23 amLODIPine [Norvasc] 10 mg PO DAILY 06/07/23 06/07/23 Previous Rx's Medication Instructions Recorded Isosorbide Mononitrate ER [Imdur] 30 mg PO DAILY #30 tab 12/26/22 Nitroglycerin Sl Tabs [Nitrostat] 0.4 mg SUBLINGUAL Q5M PRN #25 tab 12/26/22 Ticagrelor [Brilinta] 90 mg PO BID #60 tab 01/22/23 Allergies Allergy/AdvReac Type Severity Reaction Status Date / Time No Known Allergies Allergy Verified 06/07/23 15:16 Review of Systems ROS Statement: Those systems with pertinent positive or pertinent negative responses have been documented in the HPI. ROS Other: All systems not noted in ROS Statement are negative. Past Medical History Past Medical History: Heart Failure, Hyperlipidemia, Hypertension, Osteoa rthritis (OA) Additional Past Medical History / Comment(s): See Dr Scott's H&P. SOB. Poor circulation in legs. bad back History of Any Multi-Drug Resistant Organisms: None Reported Past Surgical History: Heart Catheterization Additional Past Surgical History / Comment(s): 1 stent in each leg. Past Anesthesia/Blood Transfusion Reactions: No Reported Reaction, Motion Sickness Past Psychological History: No Psychological Hx Reported Smoking Status: Former smoker Past Alcohol Use History: None Reported Past Drug Use History: None Reported - Past Family History Brother(s) Family Medical History: Cancer Additional Family Medical History / Comment(s): Lung cancer. Sister(s) Family Medical History: Cancer Additional Family Medical History / Comment(s): Lung cancer. Mother Family Medical History: Myocardial Infarction (GA) Father Family Medical History: Liver Disease General Exam Limitations: no limitations General appearance: alert, in no apparent distress Head exam: Present: atraumatic, normocephalic, normal inspection Eye exam: Present: normal appearance, PERRL, EOMI. Absent: scleral icterus, conjunctival injection, periorbital swelling ENT exam: Present: normal exam, mucous membranes moist Neck exam: Present: normal inspection. Absent: tenderness, meningismus, lymphadenopathy Respiratory exam: Present: normal lung sounds bilaterally. Absent: respiratory distress, wheezes, rales, rhonchi, stridor Cardiovascular Exam: Present: regular rate, normal rhythm, normal heart sounds. Absent: systolic murmur, diastolic murmur, rubs, gallop, clicks GI/Abdominal exam: Present: soft, normal bowel sounds. Absent: distended, tenderness, guarding, rebound, rigid Rectal exam: Present: heme (+) stool, black stool Extremities exam: Present: normal inspection, full ROM, normal capillary refill. Absent: tenderness, pedal edema, joint swelling, calf tenderness Back exam: Present: normal inspection Neurological exam: Present: alert, oriented X3, CN II-XII intact Psychiatric exam: Present: normal affect, normal mood Skin exam: Present: warm, dry, intact, normal color. Absent: rash Course Vital Signs 06/07/23 06/07/23 06/07/23 13:53 13:58 15:48 Temperature 97.1 F L Pulse Rate 90 90 Respiratory 34 H 24 Rate Blood Pressure 125/70 107/71 O2 Sat by Pulse 99 97 99 Oximetry 06/07/23 06/07/23 17:08 18:26 Temperature Pulse Rate 87 71 Respiratory 18 30 H Rate Blood Pressure 104/62 99/64 O2 Sat by Pulse 98 96 Oximetry Procedures - Gallina Protocol (Time Out) Nurse: Shorty Madsen Medical Decision Making - Medical Decision Making Was pt. sent in by a medical professional or institution (, PA, NETWORK SUPPORT SPECIALIST, urgent care, hospital, or fci...) When possible be specific @ -No Did you speak to anyone other than the patient for history (EMS, parent, family, police, friend...)? What history was obtained from this source @ -EMS Did you review nursing and triage notes (agree or disagree)? Why? @ -I reviewed and agree with nursing and triage notes Were old charts reviewed (outside hosp., previous admission, EMS record, old EKG, old radiological studies, urgent care reports/EKG's, fci records)? Report findings @ -I reviewed previous echo which was done in December Differential Diagnosis (chest pain, altered mental status, abdominal pain women, abdominal pain men, vaginal bleeding, weakness, fever, dyspnea, syncope, headache, dizziness, GI bleed, back pain, seizure, CVA, palpatations, mental health, musculoskeletal)? @ -Differential Dyspnea: Coronary syndrome, arrhythmia, tamponade, asthma, COPD, pulmonary embolism, pneumonia, pneumothorax, pulmonary effusion, anaphylaxis, diabetic ketoacidosis, flailed chest, pulmonary contusion, diaphragmatic rupture, anemia, neuromuscular, this is not meant to be an all-inclusive list. EKG interpreted by me (3pts min.). @ -Yes and demonstrates sinus rhythm with a rate of 83. OK interval 160. QRS 102. QTc of 408. No acute ST segment elevation or depression X-rays interpreted by me (1pt min.). @ -Yes and demonstrates no acute process CT interpreted by me (1pt min.). @ -None done U/S interpreted by me (1pt. min.). @ -None done What testing was considered but not performed or refused? (CT, X-rays, U/S, labs)? Why? @ -None What meds were considered but not given or refused? Why? @ -None Did you discuss the management of the patient with other professionals (professionals i.e. , PA, NETWORK SUPPORT SPECIALIST, lab, RT, psych nurse, high school social studies teacher, office messenger, teacher, security flex utility officer, case briefer)? Give summary @ -Spoke with Dr. Crystal at [facility] Was smoking cessation discussed for >3mins.? @ -No Was critical care preformed (if so, how long)? @ -Yes, 35 minutes for upper GI bleed Were there social determinants of health that impacted care today? How? (Homelessness, low income, unemployed, alcoholism, drug addiction, transportation, low edu. Level, literacy, decrease access to med. care, correction, rehab)? @ -No Was there de-escalation of care discussed even if they declined (Discuss DNR or withdrawal of care, Hospice)? DNR status @ -No What co-morbidities impacted this encounter? (DM, HTN, Smoking, COPD, CAD, Cancer, CVA, ARF, Chemo, Hep., AIDS, mental health diagnosis, sleep apnea, morbid obesity)? @ -Congestive heart failure Was patient admitted / discharged? Hospital course, mention meds given and route, prescriptions, significant lab abnormalities, going to OR and other pertinent info. @ -On arrival patient was placed into room 21. Thorough history and physical exam was performed. Patient is 95% on room air. He does become tachypneic with ambulation. Laboratory studies were conducted. Chest x-ray was performed. Patient has markedly elevated BUN. I spoke with the patient in regards to his bowel movements for which she states he has been having significant diarrhea. Rectal exam was performed and is positive. Patient does have grossly black stoo ls. Chest x-ray demonstrates no fluid. I did discuss the concern for GI bleed with anemia and the patient. We do not have GI services. I recommended transfer to a facility with GI for which he was agreeable. Spoke with Dr. Crystal at [facility]. Patient was given 80 mg of Protonix and will be transferred to their facility. He was hemodynamically stable upon transfer Undiagnosed new problem with uncertain prognosis? @ -Yes Drug Therapy requiring intensive monitoring for toxicity (Heparin, Nitro, Insulin, Cardizem)? @ -No Were any procedures done? @ -No Diagnosis/symptom? @ -Acute respiratory insufficiency, acute anemia, prerenal azotemia, GI bleed Acute, or Chronic, or Acute on Chronic? @ -Acute Uncomplicated (without systemic symptoms) or Complicated (systemic symptoms)? @ -Complicated Side effects of treatment? @ -No Exacerbation, Progression, or Severe Exacerbation? @ -No Poses a threat to life or bodily function? How? (Chest pain, [place], GA, pneumonia, PE, COPD, DKA, ARF, appy, cholecystitis, CVA, Diverticulitis, Homicidal, Suicidal, threat to staff... and all critical care pts) @ -Yes as patient is suffering from GI bleed - Lab Data Result diagrams: 06/07/23 14:53 06/07/23 14:53 Lab Results 06/07/23 06/07/23 06/07/23 Range/Units 14:53 14:53 14:53 WBC 15.9 H (3.8-10.6) k/uL RBC 2.85 L (4.30-5.90) m/uL Hgb 9.0 L (13.0-17.5) gm/dL Hct 27.6 L (39.0-53.0) % MCV 97.0 (80.0-100.0) fL MCH 31.6 (25.0-35.0) pg MCHC 32.6 (31.0-37.0) g/dL RDW 13.3 (11.5-15.5) % Plt Count 193 (150-450) k/uL MPV 10.6 Neutrophils % 74 % Lymphocytes % 16 % Monocytes % 7 % Eosinophils % 1 % Basophils % 0 % Neutrophils # 11.7 H (1.3-7.7) k/uL Lymphocytes # 2.5 (1.0-4.8) k/uL Monocytes # 1.1 H (0-1.0) k/uL Eosinophils # 0.2 (0-0.7) k/uL Basophils # 0.1 (0-0.2) k/uL PT 11.8 (10.0-12.5) sec INR 1.1 (<1.2) APTT 24.7 (22.0-30.0) sec Sodium 139 (137-145) mmol/L Potassium 4.4 (3.5-5.1) mmol/L Chloride 108 H (98-107) mmol/L Carbon Dioxide 24 (22-30) mmol/L Anion Gap 7 mmol/L BUN 116 H* (9-20) mg/dL Creatinine 1.50 H (0.66-1.25) mg/dL Est GFR (CKD-EPI)AfAm 54 (>60 ml/min/1.73 sqM) Est GFR (CKD-EPI)NonAf 46 (>60 ml/min/1.73 sqM) Glucose 114 H (74-99) mg/dL Lactic Ac Sepsis Rflx Plasma Lactic Acid Bryan (0.7-2.0) mmol/L Calcium 9.1 (8.4-10.2) mg/dL Magnesium 1.8 (1.6-2.3) mg/dL Total Bilirubin 0.5 (0.2-1.3) mg/dL AST 19 (17-59) U/L ALT 15 (4-49) U/L Alkaline Phosphatase 89 (38-126) U/L Troponin I (0.000-0.034) ng/mL NT-Pro-B Natriuret Pep <20 pg/mL Total Protein 5.5 L (6.3-8.2) g/dL Albumin 3.2 L (3.5-5.0) g/dL Stool Occult Blood (Negative) 06/07/23 06/07/23 06/07/23 Range/Units 14:53 14:53 15:51 WBC (3.8-10.6) k/uL RBC (4.30-5.90) m/uL Hgb (13.0-17.5) gm/dL Hct (39.0-53.0) % MCV (80.0-100.0) fL MCH (25.0-35.0) pg MCHC (31.0-37.0) g/dL RDW (11.5-15.5) % Plt Count (150-450) k/uL MPV Neutrophils % % Lymphocytes % % Monocytes % % Eosinophils % % Basophils % % Neutrophils # (1.3-7.7) k/uL Lymphocytes # (1.0-4.8) k/uL Monocytes # (0-1.0) k/uL Eosinophils # (0-0.7) k/uL Basophils # (0-0.2) k/uL PT (10.0-12.5) sec INR (<1.2) APTT (22.0-30.0) sec Sodium (137-145) mmol/L Potassium (3.5-5.1) mmol/L Chloride (98-107) mmol/L Carbon Dioxide (22-30) mmol/L Anion Gap mmol/L BUN (9-20) mg/dL Creatinine (0.66-1.25) mg/dL Est GFR (CKD-EPI)AfAm (>60 ml/min/1.73 sqM) Est GFR (CKD-EPI)NonAf (>60 ml/min/1.73 sqM) Glucose (74-99) mg/dL Lactic Ac Sepsis Rflx Y Plasma Lactic Acid Bryan 2.3 H* (0.7-2.0) mmol/L Calcium (8.4-10.2) mg/dL Magnesium (1.6-2.3) mg/dL Total Bilirubin (0.2-1.3) mg/dL AST (17-59) U/L ALT (4-49) U/L Alkaline Phosphatase (38-126) U/L Troponin I <0.012 (0.000-0.034) ng/mL NT-Pro-B Natriuret Pep pg/mL Total Protein (6.3-8.2) g/dL Albumin (3.5-5.0) g/dL Stool Occult Blood (Negative) 06/07/23 Range/Units 17:08 WBC (3.8-10.6) k/uL RBC (4.30-5.90) m/uL Hgb (13.0-17.5) gm/dL Hct (39.0-53.0) % MCV (80.0-100.0) fL MCH (25.0-35.0) pg MCHC (31.0-37.0) g/dL RDW (11.5-15.5) % Plt Count (150-450) k/uL MPV Neutrophils % % Lymphocytes % % Monocytes % % Eosinophils % % Basophils % % Neutrophils # (1.3-7.7) k/uL Lymphocytes # (1.0-4.8) k/uL Monocytes # (0-1.0) k/uL Eosinophils # (0-0.7) k/uL Basophils # (0-0.2) k/uL PT (10.0-12.5) sec INR (<1.2) APTT (22.0-30.0) sec Sodium (137-145) mmol/L Potassium (3.5-5.1) mmol/L Chloride (98-107) mmol/L Carbon Dioxide (22-30) mmol/L Anion Gap mmol/L BUN (9-20) mg/dL Creatinine (0.66-1.25) mg/dL Est GFR (CKD-EPI)AfAm (>60 ml/min/1.73 sqM) Est GFR (CKD-EPI)NonAf (>60 ml/min/1.73 sqM) Glucose (74-99) mg/dL Lactic Ac Sepsis Rflx Plasma Lactic Acid Bryan (0.7-2.0) mmol/L Calcium (8.4-10.2) mg/dL Magnesium (1.6-2.3) mg/dL Total Bilirubin (0.2-1.3) mg/dL AST (17-59) U/L ALT (4-49) U/L Alkaline Phosphatase (38-126) U/L Troponin I (0.000-0.034) ng/mL NT-Pro-B Natriuret Pep pg/mL Total Protein (6.3-8.2) g/dL Albumin (3.5-5.0) g/dL Stool Occult Blood Positive (Negative) Disposition Clinical Impression: Acute prerenal azotemia, GI bleed, Pulmonary edema Disposition: OTHER INSTITUTION NOT DEFINED Condition: Serious Is patient prescribed a controlled substance at d/c from ED?: No Referrals: Ángela Moreno DO [Primary Care Provider] - 1-2 days Time of Disposition: 18:32 - Out of Hospital Transfer - Req. Specs Out of Hospital Transfer - Requested Specifics: Other Emergency Center ([facility]
[2023-06-07] MEDS: PANTOPRAZOLE 40 MG/10 ML VIAL IVP STA (18:22)
[2023-06-07 18:58] VITALS: BP 99/64; PULSE 71; RESP 30
== END 2023-06-07 19:04 | disposition other institution (70) ==
LOC: EC 13:49
DX: K92.2 Gastrointestinal hemorrhage, unspecified (principal); R79.89 Other specified abnormal findings of blood chemistry; J81.1 Chronic pulmonary edema; I11.0 Hypertensive heart disease with heart failure; I50.9 Heart failure, unspecified; Z87.891 Personal history of nicotine dependence; Z79.82 Long term (current) use of aspirin
CPT/HCPCS: 36415; 93005; 83880; 80053; 83605; 83735; 84484; 85025; 85610; 85730; 82272; 71046; 99291; 96374; C9113